=== PATIENT | female | born 2000 | race Two or more races ===

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

== ENCOUNTER → 2021-03-14 | Outpatient (REF) | LOC: M LABSMTC 09:57 | PROVIDERS: ATTEND Pediatrics | DX: Z20.822 Contact with and (suspected) exposure to COVID-19 (principal) ==